=== PATIENT | female | born 2005 | race Two or more races ===

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

== ENCOUNTER 2024-03-29 19:57 | Emergency (ER) | payer SELFPAY ==
[2024-03-29] MEDS: Acetaminophen 325 MG Tab PO ONE (21:04)
[2024-03-29] MEDS: Lidocaine 2% with EPINEPHrine 1:200,000 20 ML SDV INJECT ONE (21:04)
[2024-03-29] MEDS: Diphtheria,Pertussis(Acell),Tetanus Vaccine 0.5 ML Syringe IM ONE (21:04)
== END 2024-03-29 21:13 | disposition home or self-care (01) ==
LOC: JD.ED 19:57
DX: S91.311A Laceration without foreign body, right foot, initial encounter (principal); Z79.899 Other long term (current) drug therapy; W26.8XXA Contact with other sharp object(s), not elsewhere classified, initial encounter
CPT/HCPCS: 12002; 90471; 90715; 99282; A9270; J3490

== ENCOUNTER 2024-04-07 17:20 | Emergency (ER) | payer SELFPAY | END 2024-04-07 18:18 | disposition home or self-care (01) | LOC: JD.ED 17:20 | DX: S81.811D Laceration without foreign body, right lower leg, subsequent encounter (principal); L08.9 Local infection of the skin and subcutaneous tissue, unspecified; Z79.899 Other long term (current) drug therapy; X58.XXXD Exposure to other specified factors, subsequent encounter | CPT/HCPCS: 99282 ==

== ENCOUNTER 2025-02-09 21:24 | Emergency (ER) | payer SELFPAY | END 2025-02-09 21:42 | disposition home or self-care (01) | LOC: JD.ED 21:24 | DX: O99.612 Diseases of the digestive system complicating pregnancy, second trimester (principal); U07.1 COVID-19; Z79.899 Other long term (current) drug therapy; Z87.42 Personal history of other diseases of the female genital tract | CPT/HCPCS: 99283 ==

== ENCOUNTER 2025-06-02 20:03 | Inpatient (IN) | payer MEDICAID ==
[2025-06-02] MEDS ORDERED: Sodium Chloride 0.9% 10 ML Syringe FLUSH PRN (20:28)
[2025-06-02] MEDS ORDERED: Nalbuphine 10 MG/1 ML Vial IVPUSH PRN (20:28)
[2025-06-02] MEDS ORDERED: Oxytocin/0.9 % Sodium Chloride 30 UNIT/500 ML BAG IV SCH (20:30)
[2025-06-02 20:48] LABS: BASOPHILS ABSOLUTE AUTO 0.0 K/mm3 (0.0-0.2); BASOPHILS PERCENT AUTO 0.3 % (0.0-1.0); EOSINOPHILS ABSOLUTE AUTO 0.1 K/mm3 (0.0-0.4); EOSINOPHILS PERCENT AUTO 0.9 % (0.0-6.0); IMMATURE GRAN ABSOLUTE AUTO 0.04 K/mm3 (0.00-0.05); IMMATURE GRAN PERCENT AUTO 0.3 % (0.0-0.4); LYMPHOCYTES ABSOLUTE AUTO 2.6 K/mm3 (1.0-4.8); LYMPHOCYTES PERCENT AUTO 22.4 % (24.0-44.0); MEAN PLATELET VOLUME 11.6 fl (9.4-12.3); MONOCYTES ABSOLUTE AUTO 0.7 K/mm3 (0.0-0.8); MONOCYTES PERCENT AUTO 5.8 % (0.0-8.0); NEUTROPHILS ABSOLUTE AUTO 8.2 K/mm3 (1.8-7.7); NEUTROPHILS PERCENT AUTO 70.3 % (41.0-71.0); NRBC ABSOLUTE 0.03 (0.00-0.02); NRBC PERCENT 0.3 % (0.0-0.2); PLATELET COUNT,PLT 328 K/mm3 (150-400); RED BLOOD CELL COUNT 3.73 M/mm3 (4.10-5.30); WHITE BLOOD CELL COUNT,WBC 11.72 K/mm3 (3.9-11.3)
[2025-06-02] MEDS: Lactated Ringers 1,000 ML IV SCH (20:49)
[2025-06-02] MEDS ORDERED: ePHEDrine 50 MG/ML SDV IVPUSH PRN (21:09)
[2025-06-02] MEDS: Bupivacaine/fentaNYL/NS 100 ML Bag EPIDUR PRN (21:32)
[2025-06-02] MEDS ORDERED: dexmedeTOMIDine HCl 200 MCG/2 ML SDV ONE (22:34)
[2025-06-02] MEDS ORDERED: fentaNYL 100 MCG/2 ML SDV ONE (22:34)
[2025-06-02] MEDS: Ondansetron 4 MG/2 ML SDV IVPUSH PRN (22:37)
[2025-06-02] MEDS: Oxytocin/0.9 % Sodium Chloride 30 UNIT/500 ML BAG IV SCH (23:47)
[2025-06-03] MEDS: diphenhydrAMINE 50 MG/ML SDV IVPUSH PRN (01:23)
[2025-06-03] MEDS ORDERED: Measles, Mumps & Rubella Vaccine 0.5 ML SDV SUBCUT ONE (01:34)
[2025-06-03] MEDS ORDERED: Oxytocin/0.9 % Sodium Chloride 30 UNIT/500 ML BAG IV SCH (01:34)
[2025-06-03] MEDS ORDERED: Magnesium Hydroxide 400 MG/5 ML Susp 30 ML Cup PO PRN (01:34)
[2025-06-03] MEDS: Benzocaine/Menthol 20%-0.5% Spray 78 GM Cannister TOP PRN (02:14)
[2025-06-03] MEDS: Witch Hazel Medicated Pads 40/Jar TOP PRN (02:14)
[2025-06-03] MEDS: Sodium Chloride 0.9% 10 ML Syringe FLUSH SCH (05:55)
[2025-06-03] MEDS: Prenatal Multivitamin with Calcium/Folic Acid/Iron Tab PO SCH (08:13)
== END 2025-06-04 16:10 | disposition home or self-care (01) | DRG 807 ==
LOC: JD.OBCHECK 20:03 → JD.OB 20:04 → JD.OBCHECK 20:28 → JD.OB 20:28 → OBSVTOIN 23:47 → JD.OB 23:48
PROVIDERS: ADMIT Obstetrics & Gynecology; ATTEND Obstetrics & Gynecology
PROC: 3E0234Z Introduction of Serum, Toxoid and Vaccine into Muscle, Percutaneous Approach (ICD-10-PCS; principal; 2025-06-02)
PROC: 3E0R3BZ Introduction of Anesthetic Agent into Spinal Canal, Percutaneous Approach (ICD-10-PCS; principal; 2025-06-02)
PROC: 10E0XZZ Delivery of Products of Conception, External Approach (ICD-10-PCS; principal; 2025-06-02)
PROC: 0HQ9XZZ Repair Perineum Skin, External Approach (ICD-10-PCS; principal; 2025-06-02)
DX: O99.824 Streptococcus B carrier state complicating childbirth (principal); O70.0 First degree perineal laceration during delivery; N83.202 Unspecified ovarian cyst, left side; O34.83 Maternal care for other abnormalities of pelvic organs, third trimester; Z3A.38 38 weeks gestation of pregnancy; Z37.0 Single live birth; Z79.899 Other long term (current) drug therapy; Z87.891 Personal history of nicotine dependence; Z98.890 Other specified postprocedural states; Z23 Encounter for immunization
CPT/HCPCS: 36415; 51701; 59025; 59409; 85025; 86592; 86850; 86900; 86901; A9270-GY; J0290; J1200; J2405; J3010; J3490; J7120; J7999